=== PATIENT | female | born 2005 | race Caucasian/White ===

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

== ENCOUNTER 2025-04-01 11:14 | Outpatient (CLI) | payer OTHER, SELFPAY ==
--- OUTSIDE RECORDS SUMMARY | 2025-04-01 11:17 | XMS_ITS | Clinical Summary ---
Author Organization [facility] [employer] Address [address] [place] [address] Care Team Providers Care Orthopedic Nurse Name Role Phone Non-[facility] Pcp Stl, Pcp Placeholder Primary Care Pr ovider Unavailable Source Comments [facility] [employer],non-owned Affiliates and Associated Physician Practices is amultiple site organization consisting of ambulatory clinics and hospital sitesin [place], [place], [place]. This disclosure is being madepursuant to the Care Everywhere program and may not contain all information available regarding this patient. Last updated 18.[facility] [employer] Allergies No known active allergies Medications * Be aware that medications may not be up to date on this document. Alwaysverify current medications with the patient. minocycline (Minocin) 50 MG capsule TAKE 1 CAPSULE BY MOUTH DAILY FOR ACNE 5 capsule 03/18/20 23 Active scopolamine (Transderm-Scop) 1 MG patchIndications: Motion Sickness Apply 1 (one) patch to skin every 72 hours as needed for Other Reasons: Motion Sickness 3 patch 03/30/20 23 Active methylphenidate ER (Concerta) 36 MG tabletIndications :Attention Deficit Hyperactivity Disorder Take 1 (one) tablet by mouth every morning Reasons: Attention Deficit Hyperactivity Disorder 30 tablet 04/20/20 23 Active Active Problems Problem Noted Date Diagnosed Date Attention deficit hyperactivity disorder (ADHD) 01/11/2013 DVT (deep venous thrombosis) 02/13/2009 Osteomyelitis 02/13/2009 Overview (02/13/2009): Left hip Resolved Problems Problem Noted Date Diagnosed Date Resolved Date [facility] 06/13/11 06/16/2011 12/28/2012 Immunizations Immunization Administration Dates Next Due Covid Pfizer primary Monoval ent 12+ yr 0.3ml 03/03/2022 DTAP/IPV 06/03/2010 DTaP VACCINE IM (6wk-6yrs) 12/11/2006,,2005,07/28 HEP A PEDS 2 DOSE 12/11/2006,06/02/2006 HEP B VACCINE, PED/ADOL 2005,09/26,2005,05/30 HIB BOOSTER 09/11/2006, 6,2005,07/28 INFLUENZA VACCINE 10/16/2019, 8,10/05/2006,03/02 INFLUENZA VACCINE, CELL CULT URE, QUADR. (FLUCELVAX QUADRIVALENT; 6MO+), 0.5 ML (CCIIV4) 10/11/2018 INFLUENZA VACCINE, QUADR. (A FLURIA, FLUZONE QUADRIVALENT; 6MO+) (IIV4) 10/05/2019 INFLUENZA VACCINE, QUADR. (F LUZONE; FLULAVAL; FLUARIX; AFLURIA QUADRIVALENT; 6MO+), 0.5 ML (IIV4) 09/17/2020,10/05/2019,10/30/2017,10/22,09/14/2015 Influenza Nasal 08/14/2012, 1,08/07/2010,08/07,07/28/2008 LEISA VACCINE QUAD LAIV4 PF NASAL 08/25/2014,2012 MENINGOCOCCAL ACWY (MCV4P) VAC IM 03/03/2022,05/2016 MMR 06/02/2009,06/02/2006 Meningococcal B Recombinant 2 Dose, IM 3 PNEUMOCOCCAL CONJ, PEDS 09/11/2006,12/01,2005,07/28 POLIO IPV 2005,2005,2005 TDAP (7yrs+) 02/05/2021,09/14/2015 VARICELLA 06/02/2009,06/02/2006 Social History Tobacco Use Types Packs/Day Years Used Date Smoking Tobacco: Never Smokeless Tobacco: Never Tobacco Cessation:Counseling Given: Yes PHQ-2 Answer Date Recorded PHQ2 TOTAL SCORE 0 03/30/2023 Comments No Sex and Gender Information Value Date Recorded Sex Assigned at Not on file 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 Gender Identity Not on file Sexual Orientation Not on file Last Filed Vital Signs Vital Sign Reading Time Taken Comments Blood Pressure 122/60 03/30/2023 4:23 PM CDT Pulse 70 03/30/2023 4:23 PM CDT Temperature 36.6 C (97.9 F) 03/30/2023 4:23 PM CDT Respiratory Rate - - Oxygen Saturation 100% 03/30/2023 4:23 PM CDT Inhaled Oxygen Concentration - - Weight 62.9 kg (138 lb 9.6 oz) 03/30/2023 4:23 P M CDT Height 168.3 cm (5' 6.26 ) 03/30/2023 4:23 PM CD T Body Mass Index 22.2 03/30/2023 4:23 PM CDT Body Mass Index Percentile 61.62% 03/30/2023 4:2 3 PM CDT Growth Chart: [facility] (Girls, 2- 20 Years) Plan of Treatment Health Maintenance Due Date Last Done Comments CHLAMYDIA/GONORRHEA SCREENING 2021 HEPATITIS C SCREENING 05/26/2023 MENINGOCOCCAL (Group B) VACC INE SHARED DECISION-MAKING (2 of 2 - Bexsero SCDM 2-dose series) 09/30/2023 03/30/2023 COVID-19 VACCINE (4 - 2023-2 5 season) 2024 03/03/2022, 05/15/2021, 04/23/2021 DEPRESSION SCREENING 11/16/2024 03/30/2023, 08/27/20 22 INFLUENZA VACCINE (Season Ended) 2025 09/17/2020, 10/16/2019, 10/05/2019, Additional history exists DTAP/TDAP/TD VACCINES (8 - T d or Tdap) 02/05/2031 02/05/2021, 09/14/2015, 06/03/2010, Additional history exists ZOSTER VACCINE (1 of 2) 2055 HEPATITIS B VACCINE Completed 2005, 2005, 2005, Additional history exists HIB VACCINE Completed 09/11/2006, 11/16, 2005, Additional history exists PNEUMOCOCCAL VACCINE Completed 09/11/2006, 2005, 2005, Additional history exists MENINGOCOCCAL GROUPS A/C/Y/W VACCINE Completed 03/03/2022, 10/22/2016 HIV SCREENING Discontinued HPV VACCINE Discontinued Goals Goal Patient Goal Type Associated Problems Recent Progress Patient-Stated? 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
[2025-04-01 11:55] LABS: Hematocrit 37.4 % (37.0-47.0); Mean Corpuscular HGB Conc 32.1 g/dl (32-36); Mean Corpuscular Hemoglobin 29.1 pg (26-34); Mean Corpuscular Volume 90.6 fl (80-100); Mean Platelet Volume 9.9 fl (7.4-10.4); Platelet Count Result 304 k/mm3 (150-375); Red Blood Count 4.13 M/mm3 (4.2-5.4); Red Cell Distribution Width 11.3 % (11.5-14.5)
[2025-04-01 12:11] LABS: Alanine Aminotransferase 17 U/L (6-35); Albumin Level 4.8 g/dL (3.7-5.6); Alkaline Phosphatase 53 U/L (45-116); Anion Gap 7 mmol/L (4-12); Aspartate Amino Transferase 35 U/L (14-36); Bilirubin,Total 1.5 mg/dL (0.2-1.3); Blood Urea Nitrogen 15 mg/dL (8-21); Calcium 9.7 mg/dL (8.9-10.7); Carbon Dioxide 29 mmol/L (22-30); Chloride 104 mmol/L (98-107); Cholesterol 193 mg/dL (0-200); Estimated Glomerular Filt Rate > 60; Glucose 81 mg/dL (65-110); HDL Direct 55 mg/dL; Potassium 4.2 mmol/L (3.4-5.0); Sodium 140 mmol/L (134-143); Triglycerides 79 mg/dL (<150)
[2025-04-01 12:22] LABS: LDL Cholesterol Direct 101 mg/dL
[2025-04-01 12:28] LABS: Free T4 Free Thyroxine 0.87 ng/dL (0.78-2.19)
== END 2025-04-01 11:15 | disposition home or self-care (01) ==
LOC: ANHLAB 11:15
PROVIDERS: PCP Family Medicine; Visit Provider Family Medicine
DX: F90.9 Attention-deficit hyperactivity disorder, unspecified type (principal); Z79.899 Other long term (current) drug therapy; R73.01 Impaired fasting glucose; R79.89 Other specified abnormal findings of blood chemistry
CPT/HCPCS: 36415; 80053; 80061; 84439; 84443; 85027

== ENCOUNTER 2025-09-11 07:41 | Emergency (ER) | payer OTHER, SELFPAY ==
--- NOTE | ~2025-09-11 | CT_ITS ---
CT abdomen pelvis w con Clinical History: Right lower abdominal pain. Comparison: Ultrasound right upper quadrant 11/27/2023 Technique: Axial images lung bases to symphysis pubis IV contrast information not in PACS Coronal, sagittal reformats CT images acquired with automatic exposure control for dose reduction DLP: 295 mGy-cm Findings: Lung bases: Clear. Visualized heart and pericardium: Unremarkable. Liver: Enlarged. Mild steatosis. Gallbladder: Unremarkable. Spleen: Unremarkable. Pancreas: Unremarkable. Adrenal glands: Unremarkable. Kidneys: Right kidney- mild hydronephrosis. 4 mm stone UPJ No renal stones. Left kidney- No hydronephrosis. No renal stones. Retroaortic renal vein. Distal esophagus/stomach: Unremarkable. Small bowel loops: Normal caliber and wall thickness. Colon: Normal caliber and wall thickness. Normal RLQ appendix. Nodes: No enlarged nodes. Peritoneum: No ascites. No free air. Urinary bladder: Unremarkable. Uterus: Prominent endometrial canal likely perimenses. Adnexa: No masses. Prominent gonadal veins left side. Bones: No acute bony abnormality. Soft tissues: Lower abdominal wall cross filling collateral veins. Aorta: No aneurysm or dissection. IVC: Unremarkable. 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 Main portal vein/SMV/splenic vein: Patent. IMPRESSION: 1. Right kidney hydronephrosis due to 4 mm UPJ stone 2. No other acute abnormality. 3. 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 Recommend interventional radiology consultation. Reviewed, dictated and finalized at location R. IMPRESSION: 1. Right kidney hydronephrosis due to 4 mm UPJ stone 2. No other acute abnormality. 3. 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 Recommend interventional radiology consul tation.
--- OUTSIDE RECORDS SUMMARY | 2025-09-11 07:44 | XMS_ITS | Clinical Summary ---
Author Organization [facility] [employer] Address [address] [place] [address] Care Team Providers Care Interior Plant Caretaker Name Role Phone Non-[facility] Pcp Stl, Pcp Placeholder Primary Care Pr ovider Unavailable Source Comments [facility] [employer],non-owned Affiliates and Associated Physician Practices is amultiple site organization consisting of ambulatory clinics and hospital sitesin [place], [place], [place] and [place]. This disclosure is being madepursuant to the Care Everywhere program and may not contain all information available regarding this patient. 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 Gender Identity Not on file Sexual Orientation [...] P M CDT Height 168.3 cm (5' 6.26) 03/30/2023 4:23 PM CD T Body Mass Index 22.2 03/30/2023 4:23 PM CDT Plan of Treatment Health Maintenance Due Date Last Done Comments CHLAMYDIA/GONORRHEA SCREENING 2021 HEPATITIS C SCREENING 05/26/2023 MENINGOCOCCAL (Group B) VACC INE SHARED DECISION-MAKING (2 of 2 - Bexsero SCDM 2-dose series) 09/30/2023 03/30/2023 DEPRESSION SCREENING 11/16/2024 03/30/2023, 08/27/20 22 COVID-19 VACCINE (4 - 2024-2 6 season) 2025 03/03/2022, 05/15/2021, 04/23/2021 INFLUENZA VACCINE (#1) 2025 , 10/16/2019, 10/05/2019, Additional history exists DTAP/TDAP/TD VACCINES [...] Date Last 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 [place] [address] Care Teams Interior Plant Caretaker Relationship Specialty Start Date End Date Non-[facility] Pcp Stl, Pcp Placeholder PCP - General Family Medicine 03/30/23
[2025-09-11 07:50] VITALS: BP 112/68; PULSE 67; RESP 20; TEMP 36.7; O2SAT 100
[2025-09-11 08:22] LABS: BEDSIDEPREGUCG Negative (Negative)
[2025-09-11 08:24] LABS: Hematocrit 39.7 % (37.0-47.0); Hemoglobin 13.2 g/dL (12.0-15.0); Immature Granulocyte Percent A 0.3 % (0-0.5); Lymphocytes Absolute Auto 2.69 K/mm3 (0.9-3.2); Mean Corpuscular HGB Conc 33.2 g/dl (32-36); Mean Corpuscular Hemoglobin 29.3 pg (26-34); Mean Corpuscular Volume 88.0 fl (80-100); Nucleated Red Blood Cells Absolute Auto 0.000 K/mm3 (0.0-0.012); Nucleated Red Blood Cells Perc 0.0 % (0.0-0.2); Platelet Count Result 267 k/mm3 (150-375); Red Blood Count 4.51 M/mm3 (4.2-5.4); White Blood Count 7.1 K/mm3 (4.5-10.0)
--- OUTSIDE RECORDS SUMMARY | 2025-09-11 08:34 | XMS_ITS | Clinical Summary ---
Author Organization [facility] [employer] Address [address] [place] [address] Care Team Providers Care Bobbin Collector Name Role Phone Non-[facility] Pcp Stl, Pcp Placeholder Primary Care Pr ovider Unavailable Source Comments [facility] [employer],non-owned Affiliates and Associated Physician Practices is amultiple site organization consisting of ambulatory clinics and hospital sitesin [place] and [place]. This disclosure is being madepursuant to the Care Everywhere program and may not contain all information available regarding this patient. 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
[2025-09-11 08:38] LABS: Add Urine Microscopic? YES; Appearance Urine Cloudy (Clear); Glucose Urine UA Negative (Negative); Leukocyte Esterase Ur 2+ LEU/UL (Negative); Nitrate Urine Negative (Negative); Non Pathogenic Casts 0-2; Specific Grav Ur 1.023 (1.001-1.035)
[2025-09-11 09:01] LABS: Alanine Aminotransferase 17 U/L (6-35); Albumin Level 4.9 g/dL (3.5-5.1); Alkaline Phosphatase 55 U/L (38-126); Anion Gap 10 mmol/L (4-12); Aspartate Amino Transferase 28 U/L (14-36); Bilirubin,Total 1.6 mg/dL (0.2-1.3); Blood Urea Nitrogen 14 mg/dL (7-17); Calcium 9.7 mg/dL (8.4-10.2); Carbon Dioxide 26 mmol/L (22-30); Chloride 103 mmol/L (98-107); Estimated CRCL calculation 97 ml/min; Estimated Glomerular Filt Rate > 60; Glucose 84 mg/dL (65-110); Lipase 56 U/L (23-300); Potassium 4.0 mmol/L (3.4-5.0); Sodium 139 mmol/L (137-145); Total Protein 7.9 g/dL (6.3-8.2)
--- NOTE | 2025-09-11 10:17 | ED_ITS ---
HPI - Abdominal Pain General Chief Complaint: Abdominal Pain Stated Complaint: abdominal pain Time Seen by Provider: 09/11/25 07:46 Source: patient and RN notes reviewed Mode of arrival: ambulatory Limitations: no limitations History of Present Illness HPI narrative: This is a 20 year old female who presents for evaluation of sudden onset of right upper abdominal pain. She reports nausea and pain . She denies history of similar pain in the past. She reports pain has improved at this time. She denies hematuria, dysuria or increased urinary urgency. She denies abdominal vaginal discharged. MD elicited complaint: flank pain Related Data Home Medications ?Medication ?Instructions ?Recorded ?Confirmed ?Last Taken ?Type loratadine 10 mg capsule (Allergy 10 mg PO DAILY 11/2904/13/25 Unknown History Relief (loratadine)) Allergies Allergy/AdvReac Type Severity Reaction Status Date / Time No Known Allergies Allergy Unknown Verified 09/11/25 07:42 [facility] Past Medical History Medical History ADD (attention deficit disorder) Surgical History Surgical History Hx of tympanostomy tubes Family History Family History Mother Hypertension Thyroid condition Social History Social History Smoking status: Never smoker Second hand tobacco smoke exposure: No Alcohol intake: never Substance use: never Substance use type: does not use Lack of Transportation: No Lack of Food: Never True Current Housing: I Have Housing Concerned About Future Housing: No Difficulty Paying Gas/Electric Bills: No Difficulty Paying for Meds: No Currently Unemployed: No Education: High School Diploma/GED Living arrangements: with family Gender identity (if verbalized by the patient): Female Spiritual care concerns: No Exam 2 Const: General: no acute distress and alert Nutritional Appearance: well nourished Orientation/consciousness: patient oriented x3 HENMT: Head: normal to inspection Eyes: EOM: EOMs intact bilaterally Resp: Effort & Inspection: normal respiratory effort Auscultation: clear to auscultation bilaterally Cardio: Rate: regular rate Rhythm: regular rhythm Heart sounds: no murmurs GI: GI Palp: Yes Soft to palpation, No Tenderness to palpation present (GI) and No Guarding due to palpation present (GI) Auscultation: normal bowel sounds : General: Yes no CVA tenderness Back/Spine/Pelvis: Back: no CVA tenderness Skin: General skin exam: normal color Rashes: no rashes Wounds: no wounds Neuro: General: patient oriented x3, moves all extremities and CN's II-XI intact bilaterally Extrem: General: normal to inspection Psych: Mental Status: mental status grossly normal Affect: normal affect Attitude: cooperative Course Reevaluation(s) Reevaluation #1: Patient was given toradol for pain. She denies having any pain at this time. 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 Her mother is aware of the pelvic vein abnormalities from previous complications. I reviewed patient will be given dose of antibiotics in ER. I discussed return precautions with fever, intractable pain. At that time she will need to return for IV antibiotics other maldonado she needs to follow up with urology. Date: 09/11/25 Time: 10:46 Vital Signs Vital signs: Vital Signs Temperature 98.0 F 09/11/25 07:50 Pulse Rate 67 09/11/25 07:50 Respiratory Rate 20 09/11/25 07:50 Blood Pressure 112/68 09/11/25 07:50 Pulse Oximetry 100 09/11/25 07:50 Oxygen Delivery Room Air 09/11/25 07:50 Temperature 98.0 F 09/11/25 07:50 Pulse Rate 74 09/11/25 11:18 Respiratory Rate 14 09/11/25 11:18 Blood Pressure 130/84 09/11/25 11:18 Pulse Oximetry 99 09/11/25 11:18 Oxygen Delivery Room Air 09/11/25 07:50 MDM - Abdominal Pain MDM Narrative Medical decision making narrative: PAtient presented with right abdominal pain. labs ordered which showed hematuria and UTI. I ordered CT Abdomen and pelvis for further evaluation. she was found to have 4 mm right proximal ureter calculus. 1 dose of rocephin 1 g IV given in ER. Patient has no fever, no elevated wbc so will discharge for outpatient treatment. Patient prescribed keflex and pain medications. Urology referral given Differential Diagnosis Differential diagnosis: Likely abdominal pain, acute appendicitis, calculus of kidney, constipation and gastroenteritis Medical Records Attestation: I reviewed the patient's medical records. Lab Data Attestation: I reviewed the patient's lab results. 09/11/25 08:16 09/11/25 08:16 Labs: Lab Results 09/11/25 09/11/25 Range/Units 08:15 08:16 WBC 7.1 (4.5-10.0) K/mm3 RBC 4.51 (4.2-5.4) M/mm3 Hgb 13.2 (12.0-15.0) g/dL Hct 39.7 (37.0-47.0) % MCV 88.0 (80-100) fl MCH 29.3 (26-34) pg MCHC 33.2 (32-36) g/dl RDW 11.5 (11.5-14.5) % Plt Count 267 (150-375) k/mm3 MPV 9.5 (7.4-10.4) fl Immature Gran % (Auto) 0.3 (0-0.5) % Neut % (Auto) 52.4 (45.5-73.1) % Lymph % (Auto) 38.0 (18.3-44.2) % Christian % (Auto) 8.9 H (2.6-8.5) % Eos % (Auto) 0.0 (0-4.4) % Baso % (Auto) 0.4 (0.2-1.2) % Lymph # (Auto) 2.69 (0.9-3.2) K/mm3 Christian # (Auto) 0.6 (0.1-0.6) K/mm3 Eos # (Auto) 0.0 (0-0.3) K/mm3 Baso # (Auto) 0.0 (0.0-0.1) K/mm3 Abs Immat Gran (auto) 0.02 (0.00-0.031) K/mm3 Absolute Neuts (auto) 3.7 (1.3-6.7) K/mm3 Absolute Nucleated RBC 0.000 (0.0-0.012) K/mm3 Nucleated RBC % 0.0 (0.0-0.2) % Sodium 139 (137-145) mmol/L Potassium 4.0 (3.4-5.0) mmol/L Chloride 103 (98-107) mmol/L Carbon Dioxide 26 (22-30) mmol/L Anion Gap 10 (4-12) mmol/L BUN 14 (7-17) mg/dL Creatinine 0.75 (0.7-1.0) mg/dL Estim Creat Clear Calc 97 ml/min Estimated GFR > 60 (59 - ) Glucose 84 (65-110) mg/dL Calcium 9.7 (8.4-10.2) mg/dL Total Bilirubin 1.6 H (0.2-1.3) mg/dL AST 28 (14-36) U/L ALT 17 (6-35) U/L Alkaline Phosphatase 55 (38-126) U/L Total Protein 7.9 (6.3-8.2) g/dL Albumin 4.9 (3.5-5.1) g/dL Lipase 56 (23-300) U/L Urine Color Yellow (Yellow) Urine Appearance Cloudy H (Clear) Urine pH 6.0 (5.0-9.0) Ur Specific [place] 1.023 (1.001-1.035) Urine Protein Trace (Negative) mg/dL Urine Glucose (UA) Negative (Negative) mg/dL Urine Ketones Trace H (Negative) mg/dL Ur Blood (Man) 3+ H (Negative) Urine Nitrate Negative (Negative) Urine Bilirubin Negative (Negative) Urine Urobilinogen 0.2 (<2.0) mg/dL Leukocyte Esterase Rfl 2+ H (Negative) JEFFRY/UL Urine RBC >100 H (0-2) /hpf Urine WBC 51-100 H (0-3) /hpf Ur Squamous Epith Cells Moderate (Few) /hpf Urine Bacteria 4+ H /hpf Urine Casts 0-2 POC Urine HCG, Qual Negative (Negative) Imaging Data Radiologist's impression: ITS Impressions Abdomen/Pelvis CT 09/11/25 09:40 IMPRESSION: 1. Right kidney hydronephrosis due to 4 mm UPJ stone 2. No other acute abnormality. 3. 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 Recommend interventional radiology consultation. Discharge Plan Discharge Clinical Impression: Calculus of proximal right ureter, UTI (urinary tract infection) Patient Disposition: Home Condition: Stable Instructions: Antibiotic Form, Kidney Stones (ED), How to Strain Your Urine (ED) Additional Instructions: Today you were found to be passing a kidney stone as the cause of your pain. Take antibiotics until completions. If you develop fever, vomiting or unbearable pain return to ER. Call the urology clinic today to arrange follow up appointment to make sure you are going to pass the stone. You can call [phone] or the number provided below. Patient Language: Spanish Prescriptions: New ketorolac 10 mg tablet 10 mg PO Q8H PRN (Reason: pain) Qty: 14 0RF Rx Instructions: maximum total duration of 5 days from all oral, intranasal, or parenteral formulations hydrocodone-acetaminophen 5-325 mg tablet 1 tablet PO Q6H PRN (Reason: pain) Qty: 10 0RF cephalexin 500 mg tablet 500 mg PO Q6H 7 Days Qty: 28 0RF ondansetron 4 mg tablet,disintegrating 4 mg PO Q6H PRN (Reason: nausea and vomiting) Qty: 10 0RF tamsulosin [Flomax] 0.4 mg capsule 0.4 mg PO DAILY Qty: 7 0RF No Action Allergy Relief (loratadine) 10 mg capsule 10 mg PO DAILY minocycline 50 mg capsule 50 mg PO DAILY Qty: 90 1RF methylphenidate HCl 36 mg tablet extended release 24hr 36 mg PO QAM Qty: 30 0RF Follow-up/Referrals: Ibrahima Mitchell MD [Physician, Urology] Mame Medrano DO [Primary Care Provider, Family Practice] Stand Alone Forms: Work/School Release IP
[2025-09-11] MEDS: cefTRIAXone 1 GM in SODIUM CHLORIDE 0.9% IV 50 ML 100 ML IVPB (10:36)
[2025-09-11 11:18] VITALS: BP 130/84; PULSE 74; RESP 14; O2SAT 99
== END 2025-09-11 11:21 | disposition home or self-care (01) ==
PROVIDERS: Emergency Provider General Practice; PCP Family Medicine
DX: N13.2 Hydronephrosis with renal and ureteral calculous obstruction (principal); F98.8 Other specified behavioral and emotional disorders with onset usually occurring in childhood and adolescence
CPT/HCPCS: 36415; 74177; 80053; 81001; 81025; 83690; 85025; 96365; 99284; J0696; Q9967

== ENCOUNTER 2025-09-19 10:46 | Outpatient (CLI) | payer OTHER, SELFPAY ==
--- NOTE | ~2025-09-19 | XR_ITS ---
EXAMINATION: XR abdomen/kub 1V, 09/19/2025 11:05 WATER TANKER DRIVER HISTORY: kidney stone pt states pain on right side of back COMPARISON: No comparisons available. Technique: 3 view. Findings: Bowel gas pattern unremarkable. No obstruction. Moderate fecal content limits evaluation, no renal calculi identified No acute osseous abnormality. Impression: 1. No acute abnormality. Reviewed, dictated and finalized at location P. R TANKER DRIVER Impression: 1. No acute abnormality.
== END 2025-09-19 10:47 | disposition home or self-care (01) ==
PROVIDERS: PCP Family Medicine; Visit Provider Urology
DX: N20.0 Calculus of kidney (principal)
CPT/HCPCS: 74018

== ENCOUNTER 2025-09-20 16:02 | Outpatient (CLI) | payer OTHER, SELFPAY ==
--- NOTE | ~2025-09-20 | CT_ITS ---
EXAMINATION: CT abdomen pelvis wo vick, 09/20/2025 16:16 FIELD RECORDER HISTORY: kidney stone COMPARISON: No comparisons available. TECHNIQUE: CT scan of the abdomen and pelvis was performed without IV contrast. One or more of the following dose reduction techniques were used: automated exposure control, adjustment of the mA and/or kV according to patient size, use of iterative reconstruction technique. Unless otherwise stated, incidental findings do not require dedicated follow up imaging FINDINGS: CT abdomen: LUNG BASES: The lung bases are clear. The visualized portions of the heart and pericardium are unremarkable. LIVER: Unremarkable, liver contours intact, no lesions. SPLEEN: Unremarkable, no splenomegaly. KIDNEYS: Right Kidney: Unremarkable. No calculi. No hydronephrosis. Left Kidney: Unremarkable. No calculi. No hydronephrosis ADRENAL GLANDS: Unremarkable. PANCREAS: Unremarkable. GALLBLADDER/BILIARY: Unremarkable. No biliary dilatation. STOMACH AND ESOPHAGUS: Visualized stomach and esophagus within normal limits. BOWEL/MESENTERY: Moderate fecal content, no colitis or diverticulitis. Appendix normal. Mesentery normal. No dilated small bowel loops. ADENOPATHY/RETROPERITONEUM: No lymphadenopathy. AORTA/VASCULATURE: Normal caliber aorta. FREE FLUID OR FREE AIR: None. CT pelvis: SOLID ORGANS/REPRODUCTIVE: Unremarkable. BLADDER: There are phleboliths noted within the pelvis but no definite ureteral calculi, no bladder wall thickening identified OSSEOUS STRUCTURES: No acute osseous abnormality.No suspicious lesions. OVERLYING SOFT TISSUES: Unremarkable. IMPRESSION: 1. No etiology identified to explain the patient's symptoms. Follow-up suggested if symptoms persist. Reviewed, dictated and finalized at location P. D RECORDER IMPRESSION: 1. No etiology identified to explain the patient's symptoms. Follow-up suggeste d if symptoms persist.
--- OUTSIDE RECORDS SUMMARY | 2025-09-21 15:08 | XMS_ITS | Clinical Summary ---
Author Organization [facility] Address [address] [address] Care Team Providers Care Blood Bank Technician Name Role Phone Non-[facility] Pcp Stl, Pcp Placeholder Primary Care Pr ovider Unavailable Source Comments [facility],non-owned Affiliates and Associated Physician Practices is amultiple site organization consisting of ambulatory clinics and hospital sitesin [place], [place], [place] and [place]. This disclosure is being madepursuant to the Care Everywhere program and may not contain all information available regarding this patient. 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
== END 2025-09-20 16:03 | disposition home or self-care (01) ==
PROVIDERS: PCP Family Medicine; Visit Provider Urology
DX: N20.0 Calculus of kidney (principal)
CPT/HCPCS: 74176

== ENCOUNTER 2025-09-27 10:43 | Outpatient (CLI) | payer OTHER, SELFPAY ==
--- NOTE | ~2025-09-27 | XR_ITS ---
Examination: XR abdomen/kub 1V Clinical History: RT KIDNEY STONE Comparison: CT abdomen pelvis 09/20/2025 CT abdomen pelvis 09/11/2025 Technique: 2 views supine AP abdomen Findings: No abnormal abdominal calcifications identified. Scattered colonic stool. Small bowel loops not well seen. No acute bony abnormality.. IMPRESSION: 1. No nephroureteral calculi identified. Reviewed, dictated and finalized at location R. RAM DIRECTOR CABLE TELEVISION
== END 2025-09-27 10:44 | disposition home or self-care (01) ==
PROVIDERS: PCP Family Medicine; Visit Provider Urology
DX: N20.0 Calculus of kidney (principal)
CPT/HCPCS: 74018

== ENCOUNTER 2025-10-06 10:41 | Outpatient (CLI) | payer OTHER, SELFPAY ==
--- NOTE | ~2025-10-06 | CT_ITS ---
EXAM/PROCEDURE: CT abdomen pelvis wo con HISTORY: rt ureteral stone COMPARISON: September 20, 2025 TECHNIQUE: Noncontrast CT of abdomen and pelvis FINDINGS: A 5 x 4 mm stone is present at the right UVJ consistent with slight migration of the previously described right ureteral stone; on today's exam and there is mild to moderate right-sided hydronephrosis and mild proximal right hydroureter. Strandy changes may also be present. The bowel gas pattern is nonobstructive with no free air free fluid or pneumatosis seen. Moderate to large amount of stool extends to the cecum. No grossly inflamed appendix seen. IMPRESSION: 1. Directed noncontrast CT of the abdomen and pelvis demonstrating mild to moderate right-sided hydronephrosis and mild proximal right hydroureter associated with 5 x 4 mm right UVJ stone. Mild strandy changes near present ascending UTI. 2. Moderate to large amount of stool could be associated with developing constipation. Reviewed, dictated and finalized at location A. OLOGY TECHNOLOGIST IMPRESSION: 1. Directed noncontrast CT of the abdomen and pelvis demonstrating mild to mode rate right-sided hydronephrosis and mild proximal right hydroureter associated with 5 x 4 mm right UVJ stone. Mild strandy changes near present ascending UTI. 2. Moderate to large amount of stool could be associated with developing consti pation.
--- OUTSIDE RECORDS SUMMARY | 2025-10-06 10:45 | XMS_ITS | Clinical Summary ---
Author Organization [facility] Address [address] [place] [address] Care Team Providers Care Art Gallery Director Name Role Phone Non-[facility] Pcp Stl, Pcp Placeholder Primary Care Pr ovider Unavailable Source Comments [facility],non-owned Affiliates and Associated Physician Practices is amultiple site organization consisting of ambulatory clinics and hospital sitesin [place], [place], [place] and [place]. This disclosure is being madepursuant to the Care Everywhere program and may not contain all information available regarding this patient. 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
== END 2025-10-06 10:42 | disposition home or self-care (01) ==
PROVIDERS: PCP Family Medicine; Visit Provider Urology
DX: N13.2 Hydronephrosis with renal and ureteral calculous obstruction (principal)
CPT/HCPCS: 74176